=== PATIENT | male | born 1975 | race Two or more races ===

== ENCOUNTER 2020-01-16 09:06 | Emergency (ER) | payer SELFPAY ==
[~2020-01-16] VITALS: Ht 170.2 cm; Wt 74.0 kg
[2020-01-16] MEDS ORDERED: HYDROCODONE/ACETAMINOPHEN 5/325MG TABLET PO ONE (10:00)
[2020-01-16] MEDS ORDERED: DIAZEPAM 5 MG TABLET PO ONE (10:00)
[2020-01-16] MEDS ORDERED: ONDANSETRON 4MG ODT PO ONE (10:00)
[2020-01-16 11:35] VITALS: BP 125/62
== END 2020-01-16 11:47 | disposition home or self-care (01) ==
LOC: ER 09:06
DX: M54.5 Low back pain (principal)
CPT/HCPCS: 72070; 72100; 99284; Q0162

== ENCOUNTER 2020-02-10 16:51 | Emergency (ER) | payer OTHER ==
[~2020-02-10] VITALS: Ht 172.7 cm; Wt 70.0 kg
[2020-02-10 18:02] VITALS: BP 139/74
== END 2020-02-10 18:03 | disposition home or self-care (01) ==
LOC: ER 16:51
DX: M54.9 Dorsalgia, unspecified (principal)
CPT/HCPCS: 99281